=== PATIENT | male | born 1955 | race African-American/Black ===

== ENCOUNTER 2022-02-20 01:26 | Emergency (ER) | payer MEDICARE ==
[~2022-02-20] VITALS: Ht 182.9 cm; Wt 101.8 kg
[2022-02-20 01:29] VITALS: BP 160/91
[2022-02-20] MEDS ORDERED: LASIX (01:44)
== END 2022-02-20 03:38 | disposition left against medical advice (07) ==
LOC: ER 01:26
DX: Z53.21 Procedure and treatment not carried out due to patient leaving prior to being seen by health care provider (principal); F41.9 Anxiety disorder, unspecified; F32.9 Major depressive disorder, single episode, unspecified; E78.00 Pure hypercholesterolemia, unspecified; I10 Essential (primary) hypertension; M10.9 Gout, unspecified

== ENCOUNTER 2022-02-20 05:31 | Emergency (ER) | payer MEDICARE ==
[~2022-02-20] VITALS: Ht 182.9 cm; Wt 101.0 kg
[~2022-02-20 05:31] MED LIST: LASIX
[2022-02-20 06:36] VITALS: BP 152/87
[2022-02-20 10:37] LABS: BASOPHILS % 0.6 % (0.0-2.0); EOSINOPHILS % 2.3 % (0.0-5.0); HEMOGLOBIN. 13.8 g/dL (14.0-18.0); LYMPHOCYTES % 17.1 % (20.0-50.0); MEAN CORPUSCULAR HEMOGLOBIN 31.4 pg (28.0-32.0); MEAN CORPUSCULAR VOLUME 93.4 fL (80.0-94.0); MEAN PLATELET VOLUME 8.2 fl (7.4-10.4); MONOCYTES % 8.2 % (2.0-8.0); NEUTROPHILS % 71.8 % (40.0-76.0); PLATELET 308 x1000/uL (130-400); RED BLOOD CELL COUNT 4.39 mill/uL (4.7-6.1); RED CELL DISTRIBUTION WIDTH 13.5 % (11.6-14.6)
[2022-02-20 10:46] LABS: CHLORIDE 104 mEq/L (98-107)
[2022-02-20 10:57] LABS: ETHANOL BLOOD < 10 mg/dL
== END 2022-02-20 11:36 | disposition home or self-care (01) ==
LOC: ER 05:31
DX: R53.1 Weakness (principal); R41.82 Altered mental status, unspecified; F32.9 Major depressive disorder, single episode, unspecified; E78.00 Pure hypercholesterolemia, unspecified; I10 Essential (primary) hypertension; Z98.890 Other specified postprocedural states
CPT/HCPCS: 36415; 71045; 80053; 80320; 83880; 84484; 85025; 99285; G0480